=== PATIENT | female | born 1990 | race Caucasian/White ===

== ENCOUNTER 2025-05-10 15:48 | Emergency (ER) | payer BC, SELFPAY ==
[2025-05-10 15:48] VITALS: BP 141/78; PULSE 108; RESP 18; TEMP 36.2; O2SAT 100
--- NOTE | 2025-05-10 15:56 | EDS_ITS ---
HPI History of Present Illness Chief Complaint: Lower Extremity Injury Detail of Chief Complaint: Rolled left ankle past May 08 Informant: patient Onset/Context/Timing Onset: Days Mechanism/Context: Blunt Injury Location of pain/injuries: Left ankle Quality of Pain: Dull and Aching Location: Ankle region Current Severity: Mild Maximum Severity: Severe Worsened by: Weightbearing or movement Relieved by: Nothing Associated Symptoms Associated Symptoms: Negative for Parasthesias, Weakness, Loss of function, Inability to ambulate or Amnesia Narrative Narrative: Patient is a 34-year-old female who presents with worsening ankle pain. She states she is having difficulty putting weight on it. She believes she rolled it. She also complains which puts weight on it shoots pain up to her knee. She denies paresthesia, anesthesia or motor weakness. She denies fever, chills night sweats. She is not diabetic. She has nothing at allergy to NSAIDs and aspirin. Aspirin is angioedema and NSAIDs is hives. Prior similar symptoms: No Recent Illness/Hospitalization: No PFSH PFSH Home Medications ?Medication ?Instructions ?Recorded ?Last Taken ?Type acetaminophen 500 mg tablet 500 mg PO Q4H PRN PRN Pain 04/19/17 Unknown History benzonatate 200 mg capsule 200 mg PO TID PRN cough #20 caps 07/20/24 Unknown Rx melatonin 10 mg capsule 10 mg PO HS 07/20/24 Unknown History methylprednisolone 4 mg tablets in See Rx Instructions PO PER PKG DIR 07/20/24 Unknown Rx a dose pack (Medrol (Jorge)) #21 tabs hydrocodone-acetaminophen 5-325mg 1 tab PO Q6H PRN PRN Pain 2 days 05/10/25 U nknown Rx 5mg-325mg #8 TABLETS Allergy/AdvReac Type Severity Reaction Status Date / Time aspirin Allergy Unknown Verified 05/10/25 15:48 erythromycin base Allergy Unknown Verified 05/10/25 15:48 ibuprofen (From Motrin IB) Allergy Hives Verified 05/10/25 15:48 latex Allergy Hives Verified 05/10/25 15:48 shellfish derived Allergy Anaphylaxis Verified 05/10/25 15:48 venom-honey bee (bee venom Allergy Unknown Verified 05/10/25 15:48 (honey bee)) Social History Smoking Status: Current every day smoker ROS ROS ED Constitutional Constitutional ED: Denies chills, fever(s) or subjective Musculoskeletal Musculoskeletal: Reports other Details: Detailed in the HPI narrative ; Denies arthralgias, back pain, myalgias or neck pain Integumentary Denies abscess, Abrasions or rash Neurologic Neurologic: Denies headache(s), paresthesias or weakness Psychiatric Psychiatric: Denies anxiety Hematologic/Lymphatic Hematologic/Lymphatic: Denies easy bleeding or easy bruising EXAM Physical Exam Const Vital Signs: 05/10/25 15:48 Temperature 97.2 F L Temperature Source Temporal Pulse Rate 108 H Respiratory Rate 18 Blood Pressure 141/78 H Blood Pressure Mean 99 Pulse Ox 100 Oxygen Delivery Method Room Air Positive well nourished and well developed Constitutional Narrative: Patient appears in discomfort and is whining. General Appearance ED: well developed HEENT HEENT Narrative: Head is normocephalic. Ears normal. atraumatic Eyes PERRL and EOMs intact bilaterally Resp normal respiratory effort Cardio regular rhythm and S1 normal heart sound Extremity normal to inspection and full ROM Extremity Narrative: Tenderness over the medial malleolus and deltoid ligament. She has tenderness of the anterior talofibular and. Minimal tenderness of the tip of the lateral malleolus. There is no pain to elevation of the base of the fifth metatarsal. There is no laxity with drawer testing. DP and PT pulse are palpable. She complained of pain when I was palpating her DP pulse. There is no ecchymosis noted. There is no abrasion noted. She has full active range of motion at the knee. General Extremety ED: Yes tenderness; Negative for deformity or edema General Extremity: Negative for deformity or edema Neuro oriented x3, CN's II-XII intact bilaterally and moves all extremities Sensorium / Orientation: alert Psych Mood & Affect: anxious Skin no rashes or lesions noted, no wounds, skin turgor normal and no jaundice MDM MDM MDM Narrative Medical decision making narrative: X-ray was obtained to evaluate for sprain versus fracture. Clinically she does not have a dislocation. Because of her allergies she received a dose of [place] in the department. Radiography Chest X-Ray - ED: Read by ED Physician (Three-view x-ray of the left ankle reveals no fracture, subluxation or dislocation. There is no foreign body. There is no soft tissue swelling noted. The tarsal bones appear normal as well.) Discharge Plan Triage Chief Complaint: Lower Extremity Injury ED Provider: Praveen Marin Dx/Rx/DC Orders Clinical Impression: Sprain of anterior talofibular ligament of left ankle, Sprain of deltoid ligament of left ankle, initial encounter, Elevated blood-pressure reading without diagnosis of hypertension, Nonsteroidal anti-inflammatory drug (NSAID)- induced angioedema with urticaria Instructions: Ankle Dorsiflexion (Strength), Ankle Inversion (Strength), ED Ankle Sprain (Adult) Prescriptions: New hydrocodone-acetaminophen 5-325 mg tablet 1 tab PO Q6H PRN PRN (Reason: Pain) 2 Days Qty: 8 0RF No Action melatonin 10 mg capsule 10 mg PO HS methylprednisolone [Medrol (Jorge)] 4 mg tablets,dose pack See Rx Instructions PO PER PKG DIR Qty: 21 0RF Rx Instructions: PO PER PKG DIR benzonatate 200 mg capsule 200 mg PO TID PRN (Reason: cough) Qty: 20 0RF acetaminophen 500 MG tablet 500 mg PO Q4H PRN PRN (Reason: Pain) Primary Care Provider: Lauren Green,Out of Referrals: Lauren Green,Out of [Primary Care Provider] - Activity Restrictions/Additional Instructions: 1. Apply ice to your left ankle 6-10 times a day 2. Draw the alphabet with your foot 4-6 times a day 3. Take pain medicine as needed for severe pain. Print Language: Italian Disposition Disposition: Home, Self Care
[2025-05-10 16:00] VITALS: BMI 34.8
[2025-05-10] MEDS: HYDROcodone Bitartrate/Apap 5/325 Tablet PO (16:00)
--- NOTE | 2025-05-10 16:00 | RAD_ITS ---
PROCEDURE: ANKLE MIN 3 VIEWS 05/10/2025 REASON FOR EXAM: INJURY/PAIN TECHNIQUE: ANKLE MIN 3 VIEWS COMPARISON: None FINDINGS: No acute fracture or traumatic malalignment. Bone mineral density is subjectively normal. Joint spaces are maintained. The soft tissues are unremarkable. No significant ankle joint effusion. RAD/Ankle min 3 Views IMPRESSION: Unremarkable left ankle radiographs. Reading Location: [facility]
[2025-05-10 16:46] VITALS: BP 140/74; PULSE 86; RESP 18; TEMP 36.2; O2SAT 100
== END 2025-05-10 16:48 | disposition home or self-care (01) ==
PROVIDERS: Emergency Provider Emergency Medicine; Visit Provider Emergency Medicine
DX: S93.422A Sprain of deltoid ligament of left ankle, initial encounter (principal); S93.492A Sprain of other ligament of left ankle, initial encounter; X50.1XXA Overexertion from prolonged static or awkward postures, initial encounter; R03.0 Elevated blood-pressure reading, without diagnosis of hypertension; Z88.6 Allergy status to analgesic agent; F17.200 Nicotine dependence, unspecified, uncomplicated
CPT/HCPCS: 73610; 99282